=== PATIENT | female | born 1960 | race Caucasian/White ===

== ENCOUNTER 2016-05-16 18:38 | Emergency (ER) | payer BC ==
[~2016-05-16] VITALS: Ht 160 cm; Wt 103.8 kg
[~2016-05-16 18:38] MED LIST: AMBIEN10 MG PO; ASCORBIC ACID500 MG PO; Ambien PO; Ascorbic Acid,Ester- PO; BIOTIN1000 MICRO PO; C COMPLEX500 MG PO; CLARITIN,ALAVAR10 MG PO; Claritin,Alavart PO; Colace PO; DILAUDID2 MG PO; Dilaudid PO; Dulcolax PO; Flexeril PO; Folvite PO; Keflex PO; Miralax, Glycolax PO; NEURONTIN PO; NEURONTIN300 MG PO; Neurontin PO; PERCOCET 5/31 TABLET PO; PRILOSEC PO; PRILOSEC40 MG PO; PriLOSEC PO; ROBAXIN PO; SUPER CALCIUM600 MG PO; THERAGRAN1 TABLET PO; TYLENOL REGULA325 MG PO; TYLENOL WITH C1 EACH PO; Theragran PO; Tylenol Regular Stre PO; VALIUM5 MG PO; VITAMIN D1000 INTUN PO; VITAMIN D35000 UNIT PO
[2016-05-16 19:36] LABS: HEMATOCRIT 42.7 % (36.0-46.0); MCH 30.3 PG (29.0-34.0); MCHC 33.3 G/DL (30.0-36.0); MEAN PLAT.VOLUME 9.5 uM^3 (9.5-12.4); PLATELET COUNT 314 K/uL (156-360); RBC DIS.WIDTH-CV 11.9 % (11.8-14.6); RBC DIS.WIDTH-SD 39.4 % (39-53); RED BLOOD COUNT 4.69 M/uL (3.80-5.20); WHITE BLOOD COUNT 8.1 K/uL (4.1-10.2)
[2016-05-16 19:44] LABS: CHLORIDE 100 mEq/L (99-109); POTASSIUM 4.2 mEq/L (3.7-5.4); SODIUM 139 mEq/L (136-147)
[2016-05-16 19:45] LABS: GLUCOSE 99 mg/dL (70-99)
[2016-05-16 19:47] LABS: ANION GAP 11 MEQ/L (2-14)
[2016-05-16 19:49] LABS: GFR ESTIMATE (CALCULATED) > 59 mL/min/
[2016-05-16 19:50] LABS: UREA NITROGEN (BUN) 11 mg/dL (9-23)
[2016-05-16 19:56] LABS: TROP-I INTERPRETATION NEGATIVE; TROPONIN-I < 0.01 ng/mL (0.0-0.30)
[2016-05-16 20:50] LABS: TROP-I INTERPRETATION NEGATIVE; TROPONIN-I < 0.01 ng/mL (0.0-0.30)
[2016-05-16 21:19] VITALS: BP 158/88
== END 2016-05-16 21:20 | disposition home or self-care (01) ==
LOC: EME 18:38
PROVIDERS: Emergency Medicine
DX: R07.9 Chest pain, unspecified (principal); R00.2 Palpitations
CPT/HCPCS: 71020; 80048; 84484; 85027; 93005; 99281; 99284

== ENCOUNTER → 2017-10-07 | Outpatient (CLI) | payer BC | END | disposition home or self-care (01) | LOC: NUC 06:52 | DX: R10.11 Right upper quadrant pain (principal) | CPT/HCPCS: 78226; A9537 ==